=== PATIENT | male | born 1970 | race Caucasian/White ===

== ENCOUNTER 2024-07-21 08:00 | Day surgery (SDC) | payer MEDICARE ==
[2024-07-19 16:32] VITALS: BP 108/73
[~2024-07-21] VITALS: Ht 180.3 cm; Wt 79.0 kg
[~2024-07-21 08:00] MED LIST: CYMBALTA20 MG PO; DEPLIN-ALGAL O1 EAC1; GABAPENTIN300 MG PO; IBLOOD GLUCOSE TEST STRIP 1 EA TEST VI PRN; IBUPROFEN800 MG PO; KEFLEX500 MG PO; LACTATED RINGER'S 1,000 ML IV SCH; LIDOCAINE HCL 1% 5 ML SDV INJ ONE; MIDAZOLAM HCL 5 MG/5 ML VIAL IV PRN; TRAMADOL HCL50 MG PO; VITAMIN B12500 MCG PO; VITAMIN D310 MC4 PO; fentaNYL citrate 100 MCG/2 ML VIAL IV PRN; propofoL 200 MG/20 ML VIAL ONE
[2024-07-21 08:11] VITALS: BP 112/73
[2024-07-21] MEDS ORDERED: VITAMIN C WIT1000 M2 PO (08:13)
[2024-07-21] MEDS ORDERED: CALCIUM-MAG-ZI1 EAC2 PO (08:13)
[2024-07-21] MEDS ORDERED: GARLIC100 MG PO (08:13)
[2024-07-21] MEDS ORDERED: TYLENOL EXTRA500 MG PO (08:14)
[2024-07-21] MEDS ORDERED: IBU-200200 MG PO (08:14)
--- NOTE | 2024-07-21 09:14 | NUR ---
07/21/24 0914 Ayleen Lovell 0903-PATIENT ARRIVED TO PACU ON 10L MASK NONAROUSABLE ORAL AIRWAY IN PLACE. PATIENT LAYING LEFT LATERAL. SR IVF INFUSING. ABDOMEN SOFT. PATIENTS FACE IS RED 0909-PATIENT REACTIVE TO VERBAL STIMULI OPENING EYES 6L MASK RR EVEN 100% ORAL AIRWAY REMOVED BY STUDENT RN . ORIENTED TO PACU HOB ELEVATED. IVF INFUSING. PATIENTS FACE IS NOT RED ANYMORE AFTER SITTING UP 0911-PATIENT AWAKE PLACED ON RA RR EVEN 100%
[2024-07-21 09:54] VITALS: BP 118/85
--- NOTE | 2024-07-21 11:20 | OR ---
[facility] [address], [place] [address] Signed DATE OF OPERATION: 07/21/2024 SURGEON: Columba Simmons MD PREOPERATIVE DIAGNOSIS: Initial screening colonoscopy. POSTOPERATIVE DIAGNOSES: 1. 4 mm polyp at 8 cm in rectum. 2. 4 mm polyp at 68 cm in left colon. 3. 4 mm polyp at 52 cm in left colon. 4. Minimal sigmoid diverticulosis. 5. Moderate anal skin tag. PROCEDURE: Colonoscopy with hot biopsy. ESTIMATED BLOOD LOSS: None. INDICATIONS: Alf is a 54-year-old gentleman, who unfortunately had gone disability about nine years ago. [place] [address] [place] our hospital. He has chronic pain and has to use marijuana every night to go to bed. He said he has used alcohol in the past. He was asked to see me for his initial screening colonoscopy. He has no lower GI complaints. There is no family history of colon cancer or polyps. In the office, I gave him a pamphlet on colonoscopy. We had reviewed the nature of the test. There is risk including, but not limited to gas bloating, crampy abdominal pain, bleeding, perforation requiring surgery, and missed diagnosis. We also reviewed the written instructions with bowel prep line by line. He also understands the need for monitored anesthesia care given his disability as well as his need for daily marijuana. In that regard, he did have preoperative blood work and an EKG. He understands an adult person has to take him home afterwards. He had expressed understanding and wished to proceed. DESCRIPTION OF PROCEDURE: Alf was taken into our endoscopy suite and placed in the left lateral decubitus position. He was given monitored anesthesia care propofol infusion per our nurse pattern checker. A digital rectal exam was performed and this was unremarkable. He had just one moderate-sized anal skin tag. Really no external hemorrhoids. He had good sphincter tone. There were no masses. The adult colonoscope was introduced and Electronically Signed By: COLUMBA SIMMONS MD 07/21/24 1120 PATIENT NAME: ALF LOCK OPERATIVE REPORT DATE OF : 70 REPORT #: [id number] PHYSICIAN: COLUMBA SIMMONS MD PCP: YVONNE ORELLANA MD REPORT IS CONFIDENTIAL AND NOT TO BE RELEASED WITHOUT AUTHORIZATION [facility] [address] [place] [id number] [address]igned advanced all the way around into the cecum under direct visualization of camera without difficulty. His prep was quite excellent. We could easily see the appendiceal orifice and ileocecal valve. The scope was then slowly withdrawn. We took pictures throughout for photodocumentation. The above-mentioned polyps were easily removed with the help of hot biopsy forceps. We did see some diverticula in the sigmoid colon. They were small to moderate in size, few in number and scattered about. In the rectum, the scope was retroflexed and we could just see that one internal anal skin tag and some very minimal internal hemorrhoid tissue. After this, the gas was suctioned out, colonoscope removed. Alf tolerated the procedure quite well. RECOMMENDATIONS: I will see Alf back in my office in 7 to 14 days to review his results. Columba Simmons MD ALB/MODL /[id number] cc: MD Yvonne Sanchez MD Patient Chart Copies: COLUMBA SIMMONS MD, RUSSELL BARR MD ~ Electronically Signed By: COLUMBA SIMMONS MD 07/21/24 1120 PATIENT NAME: ALF LOCK OPERATIVE REPORT DATE OF : 70 REPORT #: [id number] PHYSICIAN: COLUMBA SIMMONS MD PCP: YVONNE ORELLANA MD REPORT IS CONFIDENTIAL AND NOT TO BE RELEASED WITHOUT AUTHORIZATION
--- NOTE | 2024-07-23 11:05 | PATH ---
[facility] [address], [place] [address] Signed SPECIMEN(S): A RECTAL POLYP AT 8 CM SPECIMEN(S): B DESCENDING COLON POLYP 68 CM SPECIMEN(S): C DESCENDING COLON POLYP 52 CM SPECIMEN SOURCE: A. RECTAL POLYP AT 8 CM B. DESCENDING COLON POLYP 68 CM C. DESCENDING COLON POLYP 52 CM CLINICAL HISTORY: Colon screening FINAL PATHOLOGIC DIAGNOSIS: A. Rectal polyp at 8 cm, polypectomy: - Hyperplastic polyp. B. Descending colon polyp at 68 cm, polypectomy: - Tubular adenoma. - Negative for high-grade dysplasia and malignancy. C. Descending colon polyps at 52 cm, polypectomy: - Hyperplastic polyp. DDF MICROSCOPIC EXAMINATION: Histologic sections of all submitted blocks are examined by light microscopy. These findings, together with the gross examination, support the pathologic diagnosis. GROSS DESCRIPTION: A. The specimen, labeled and designated "Susie, rectal polyp at 8 cm," is received in formalin and consists of one sylvester soft tissue fragment, 0.1 cm. Entirely submitted in (A1). B. The specimen, labeled and designated "Susie, descending colon polyp at 68 cm," is received in formalin and consists of one sylvester soft tissue fragment, 0.2 cm. Entirely submitted in (B1). C. The specimen, labeled and designated "Susie, descending colon polyps at 52 cm," is received in formalin and consists of one sylvester soft tissue fragment, 0.1 cm. Entirely submitted in (C1). JS (under the direct supervision of a pathologist) The Gross Description was prepared using a voice recognition system. The report was reviewed for accuracy; however, sound-alike word errors, addition and/or deletions may occur. If there is any PATIENT NAME: ALF LOCK PATHOLOGY DATE OF : 70 REPORT #: [id number] PHYSICIAN: LATANYA CHRISTOPHER PCP: YVONNE ORELLANA MD REPORT IS CONFIDENTIAL AND NOT TO BE RELEASED WITHOUT AUTHORIZATION [facility] [address], [place] [address] Signed question about this report, please contact Client Services. ADDITIONAL NOTES: Immunohistochemical and/or in situ hybridization studies if performed in this case included appropriate positive controls that reacted as expected. This test was developed and its performance characteristics determined by [facility]. It has not been cleared or approved by the U.S. Food and Drug Administration. The FDA has determined that such clearance or approval is not necessary. This test is used for clinical purposes. It should not be regarded as investigational or for research. [facility] is certified under the Clinical Laboratory Improvement Amendments of 1988 (CLIA) as qualified to perform high complexity clinical laboratory testing. PERFORMING LABORATORY: Technical component was performed by [facility], [address] [place] [id number] (CLIA# [id number]). Professional interpretation was performed by [email or web address], [address] [place] [id number] (CLIA#: [id number]). Diagnostician: Eric Sutherland DO Pathologist Electronically Signed 07/23/2024 Copies: ~ PATIENT NAME: ALF LOCK PATHOLOGY DATE OF : 70 REPORT #: [id number] PHYSICIAN: LATANYA PATHOLOGY PCP: YVONNE ORELLANA MD REPORT IS CONFIDENTIAL AND NOT TO BE RELEASED WITHOUT AUTHORIZATION
== END 2024-07-21 10:10 | disposition home or self-care (01) ==
LOC: DS 08:00
PROVIDERS: ATTEND Colon & Rectal Surgery
PROC: 0DBP8ZZ Excision of Rectum, Via Natural or Artificial Opening Endoscopic (ICD-10-PCS; 2024-07-21)
PROC: 0DBG8ZZ Excision of Left Large Intestine, Via Natural or Artificial Opening Endoscopic (ICD-10-PCS; principal; 2024-07-21 08:45)
DX: Z12.11 Encounter for screening for malignant neoplasm of colon (principal); D12.4 Benign neoplasm of descending colon; K62.1 Rectal polyp; K57.30 Diverticulosis of large intestine without perforation or abscess without bleeding; K64.8 Other hemorrhoids; F12.10 Cannabis abuse, uncomplicated; G89.4 Chronic pain syndrome; F32.A Depression, unspecified; G25.81 Restless legs syndrome; Z79.899 Other long term (current) drug therapy; Z72.89 Other problems related to lifestyle
CPT/HCPCS: 00811; J2704; J7121